=== PATIENT | female | born 1970 | race Caucasian/White ===

== ENCOUNTER 2020-07-30 04:43 | Emergency (ER) | payer OTHER ==
[~2020-07-30 04:43] MED LIST: ASPIRIN CHEWABL81 MG PO; ASPIRIN EC81 MG PO; ASPIRIN81 MG PO; CALCIUM/VIT D PO; CEFUROXIME500 MG PO; CETIRIZINE HCL10 MG PO; COMPAZINE 5MG TA5 MG PO; COREG 12.5MG12.5 MG PO; DESYREL 50 MG T50 MG PO; ENTRESTO 24 MG1 EACH PO; FERROUS SULFAT325 M2 PO; FUROSEMIDE40 MG PO; IMDUR ER TAB 3030 MG PO; K-DUR TAB 20 M20 MEQ PO; LASIX20 MG PO; LASIX40 MG PO; LASIX80 MG PO; LEVAQUIN500 MG PO; LIPITOR TAB 2020 MG PO; MONTELUKAST SOD10 MG PO; NITROSTAT0.4 MG SL; PANTOPRAZOLE SO40 MG PO; PAROXETINE HCL10 MG PO; PLAVIX 75 MG TA75 MG PO; POTASSIUM CHLO20 ME1 PO; PRINIVIL10 MG PO; PRINIVIL20 MG PO; PROTONIX40 MG PO; RESTORIL15 MG PO; ROBITUSSIN DM473 ML PO; SINGULAIR10 MG PO; TESSALON PERLE100 MG PO; TOPROL XL100 MG PO; TYLENOL WITH C1 EACH PO; VISTARIL25 MG PO; XARELTO10 MG PO; XARELTO15 PACK PO; ZANTAC150 MG PO; ZOFRAN ODT4 MG PO; ZOFRAN4 MG PO; ZYRTEC10 MG PO
[2020-07-30] MEDS ORDERED: PERCOCET 5/325 T1 EA PO (06:38)
== END 2020-07-30 09:04 | disposition home or self-care (01) ==
LOC: ER1 04:43
DX: M54.5 Low back pain (principal)
CPT/HCPCS: 72100; 99283

== ENCOUNTER 2020-08-01 04:21 | Inpatient (IN) | payer OTHER ==
[~2020-08-01] VITALS: Ht 165.1 cm; Wt 117.9 kg
[~2020-08-01 04:21] MED LIST changes: +PERCOCET 5/325 T1 EA PO
[2020-08-01 05:23] LABS: HEMOGLOBIN 16.5 gm/dl (12.3-15.3); RED BLOOD COUNT 5.77 M/UL (4.00-5.10); WHITE BLOOD COUNT 14.5 K/UL (4.5-11.0)
[2020-08-01] MEDS ORDERED: ZOFRAN4 MG PO (09:19)
[2020-08-01] MEDS ORDERED: XARELTO20 MG PO (09:21)
[2020-08-01] MEDS ORDERED: TUMS300 MG PO (13:06)
[2020-08-01] MEDS ORDERED: MAG-OX 400 TAB400 MG PO (13:08)
[2020-08-01] MEDS ORDERED: MIRALAX17 GM PO (13:09)
[2020-08-01] MEDS ORDERED: PROAMATINE 2.52.5 MG PO (13:09)
[2020-08-01] MEDS ORDERED: ALDACTONE50 MG PO (13:09)
[2020-08-01] MEDS ORDERED: LOPRESSOR 25 MG25 MG PO (13:09)
[2020-08-01] MEDS ORDERED: SINGULAIR10 MG PO (13:09)
[2020-08-01] MEDS ORDERED: PEPCID20 MG PO (13:10)
[2020-08-01] MEDS ORDERED: GUAIFENESIN-DM10 M1 PO (13:12)
[2020-08-01] MEDS ORDERED: DIOCTO PO (13:12)
[2020-08-01] MEDS ORDERED: BUTALB-ACETAMI1 EACH PO (13:13)
[2020-08-01] MEDS ORDERED: NEURONTIN 100100 MG PO (13:13)
[2020-08-01] MEDS ORDERED: LIPITOR20 MG PO (13:14)
[2020-08-01] MEDS ORDERED: IPRAT-ALBUT 0.5-3 ML INH (13:14)
[2020-08-01] MEDS ORDERED: LOPERAMIDE2 MG PO (13:14)
[2020-08-01] MEDS ORDERED: COENZYME Q10100 M1 PO (13:15)
[2020-08-01] MEDS ORDERED: BUMETANIDE1 MG PO (13:15)
[2020-08-01] MEDS ORDERED: TYLENOL325 MG PO (13:15)
[2020-08-01] MEDS ORDERED: TYLENOL 120 MG120 MG PR (13:16)
--- NOTE | 2020-08-02 00:15 | NUR ---
PTT PER LAB >250. HEPARIN DRIP HELD. LAB TO RECHECK RESULT.
[2020-08-02 03:32] LABS: HEMOGLOBIN 14.7 gm/dl (12.3-15.3); WHITE BLOOD COUNT 15.8 K/UL (4.5-11.0)
[2020-08-02 03:33] LABS: RED BLOOD COUNT 5.19 M/UL (4.00-5.10)
[2020-08-03 05:19] LABS: HEMOGLOBIN 13.3 gm/dl (12.3-15.3); RED BLOOD COUNT 4.8 M/UL (4.00-5.10); WHITE BLOOD COUNT 10.3 K/UL (4.5-11.0)
[2020-08-03 23:35] LABS: HEMOGLOBIN 13.2 gm/dl (12.3-15.3); RED BLOOD COUNT 4.7 M/UL (4.00-5.10)
[2020-08-03 23:38] LABS: WHITE BLOOD COUNT 7.7 K/UL (4.5-11.0)
[2020-08-04 06:42] LABS: RED BLOOD COUNT 4.68 M/UL (4.00-5.10)
[2020-08-04 07:09] LABS: BUN/CREATININE RATIO 18 (0-10)
[2020-08-04] MEDS ORDERED: HYDROCODON-ACE1 EAC4 PO (09:21)
[2020-08-04] MEDS ORDERED: AUGMENTIN 875-1 EACH PO (10:19)
[2020-08-04 23:49] LABS: BUN/CREATININE RATIO 18 (0-10)
[2020-08-05 08:29] LABS: WHITE BLOOD COUNT 8.5 K/UL (4.5-11.0)
[2020-08-05 08:35] LABS: HEMOGLOBIN 15.2 gm/dl (12.3-15.3); RED BLOOD COUNT 5.4 M/UL (4.00-5.10)
[2020-08-06 02:47] LABS: RED BLOOD COUNT 5.04 M/UL (4.00-5.10); WHITE BLOOD COUNT 7.3 K/UL (4.5-11.0)
[2020-08-06 02:59] LABS: BUN/CREATININE RATIO 18 (0-10)
== END 2020-08-06 17:35 | DRG 444 ==
LOC: ER1 04:21 → CCU 08:25 → PROG CARE 08:25 → MED SURG 4 08:25 → CDU 08:25 → CCU 14:02 → PROG CARE 08-03 09:37 → MED SURG 4 08-04 13:13 → PROG CARE 08-05 10:15
PROVIDERS: Emergency Medicine; Internal Medicine; ADMIT Internal Medicine
PROC: 0F9430Z Drainage of Gallbladder with Drainage Device, Percutaneous Approach (ICD-10-PCS; principal; 2020-08-03)
DX: K81.0 Acute cholecystitis (principal); A41.9 Sepsis, unspecified organism; R65.21 Severe sepsis with septic shock; I50.22 Chronic systolic (congestive) heart failure; E87.1 Hypo-osmolality and hyponatremia; I13.0 Hypertensive heart and chronic kidney disease with heart failure and stage 1 through stage 4 chronic kidney disease, or unspecified chronic kidney disease; Z68.41 Body mass index [BMI] 40.0-44.9, adult; I25.5 Ischemic cardiomyopathy; I25.10 Atherosclerotic heart disease of native coronary artery without angina pectoris; E78.5 Hyperlipidemia, unspecified; I73.9 Peripheral vascular disease, unspecified; N18.30 Chronic kidney disease, stage 3 unspecified; I27.20 Pulmonary hypertension, unspecified; I34.0 Nonrheumatic mitral (valve) insufficiency; Z20.822 Contact with and (suspected) exposure to COVID-19; I07.1 Rheumatic tricuspid insufficiency; E66.01 Morbid (severe) obesity due to excess calories; Z74.01 Bed confinement status; Z90.49 Acquired absence of other specified parts of digestive tract; Z86.718 Personal history of other venous thrombosis and embolism; Z86.73 Personal history of transient ischemic attack (TIA), and cerebral infarction without residual deficits; Z79.01 Long term (current) use of anticoagulants; Z86.711 Personal history of pulmonary embolism; I25.2 Old myocardial infarction; Z82.49 Family history of ischemic heart disease and other diseases of the circulatory system; Z83.3 Family history of diabetes mellitus; Z72.0 Tobacco use; Z98.51 Tubal ligation status; Z95.810 Presence of automatic (implantable) cardiac defibrillator
CPT/HCPCS: ECHO; 0240U; 36415; 36556; 36600; 71045; 80048; 80053; 82550; 82553; 82803; 83605; 83690; 83735; 83874; 83880; 84100; 84484; 85025; 85027; 85610; 85730; 86140; 87040; 87070; 87077; 87186; 87205; 93005; 93306; 94760; 96365; 96375; 99285; C1751; J1644; J2185; J2270; J2405; J7070; Q9967

== ENCOUNTER 2020-08-08 06:59 | Emergency (ER) | payer OTHER ==
[~2020-08-08 06:59] MED LIST changes: +ALDACTONE50 MG PO; +AUGMENTIN 875-1 EACH PO; +BUMETANIDE1 MG PO; +BUTALB-ACETAMI1 EACH PO; +COENZYME Q10100 M1 PO; +DIOCTO PO; +GUAIFENESIN-DM10 M1 PO; +HYDROCODON-ACE1 EAC4 PO; +IPRAT-ALBUT 0.5-3 ML INH; +LIPITOR20 MG PO; +LOPERAMIDE2 MG PO; +LOPRESSOR 25 MG25 MG PO; +MAG-OX 400 TAB400 MG PO; +MIRALAX17 GM PO; +NEURONTIN 100100 MG PO; +PEPCID20 MG PO; +PROAMATINE 2.52.5 MG PO; +TUMS300 MG PO; +TYLENOL 120 MG120 MG PR; +TYLENOL325 MG PO; +XARELTO20 MG PO
[2020-08-08 10:37] LABS: HEMOGLOBIN 14.6 gm/dl (12.3-15.3); RED BLOOD COUNT 5.25 M/UL (4.00-5.10); WHITE BLOOD COUNT 6.5 K/UL (4.5-11.0)
[2020-08-08 10:55] LABS: BUN/CREATININE RATIO 14 (0-10)
== END 2020-08-08 16:38 | disposition home or self-care (01) ==
LOC: ER1 06:59
PROVIDERS: Family Medicine
DX: T85.510A Breakdown (mechanical) of bile duct prosthesis, initial encounter (principal); I11.0 Hypertensive heart disease with heart failure; I50.9 Heart failure, unspecified; I42.9 Cardiomyopathy, unspecified; Z86.73 Personal history of transient ischemic attack (TIA), and cerebral infarction without residual deficits
CPT/HCPCS: 80053; 85025; 99285

== ENCOUNTER 2020-09-09 06:52 | Emergency (ER) | payer OTHER ==
[2020-09-09 08:11] LABS: HEMOGLOBIN 15.9 gm/dl (12.3-15.3); RED BLOOD COUNT 5.75 M/UL (4.00-5.10); WHITE BLOOD COUNT 7.4 K/UL (4.5-11.0)
[2020-09-09 08:38] LABS: BUN/CREATININE RATIO 16 (0-10)
== END 2020-09-09 16:40 ==
LOC: ER1 06:52
PROVIDERS: Physician Assistant
DX: T85.590A Other mechanical complication of bile duct prosthesis, initial encounter (principal); Z86.73 Personal history of transient ischemic attack (TIA), and cerebral infarction without residual deficits
CPT/HCPCS: 71045; 80053; 82550; 82553; 83874; 84484; 85025; 93005; 99284

== ENCOUNTER 2020-09-27 09:05 | Emergency (ER) | payer OTHER ==
[2020-09-27 09:57] LABS: HEMOGLOBIN 16.7 gm/dl (12.3-15.3); RED BLOOD COUNT 6.51 M/UL (4.00-5.10); WHITE BLOOD COUNT 7.2 K/UL (4.5-11.0)
[2020-09-27 10:16] LABS: BUN/CREATININE RATIO 14 (0-10)
[2020-09-27] MEDS ORDERED: VIBRAMYCIN 100100 MG PO (16:44)
[2020-09-27] MEDS ORDERED: IBUPROFEN800 MG PO (16:44)
[2020-09-27] MEDS ORDERED: TESSALON PERLE100 MG PO (16:44)
== END 2020-09-27 17:45 | disposition home or self-care (01) ==
LOC: ER1 09:05
PROVIDERS: Emergency Medicine
DX: J18.9 Pneumonia, unspecified organism (principal); I10 Essential (primary) hypertension; Z20.822 Contact with and (suspected) exposure to COVID-19
CPT/HCPCS: 71045; 80053; 82550; 82553; 83690; 84484; 85025; 85379; 93005; 99285; Q9967; U0002